=== PATIENT | female | born 1950 | race African-American/Black ===

== ENCOUNTER 2017-12-19 09:58 | Emergency (ER) | payer OTHER ==
[~2017-12-19] VITALS: Ht 167.6 cm; Wt 90.5 kg
[~2017-12-19 09:58] MED LIST: GLUCTAB PO; NAPR500 PO; ORPH100T PO; ST JTAB PO
[2017-12-19 10:00] VITALS: BP 163/74; PULSE 69; RESP 18; TEMP 98.2; O2SAT 94
[2017-12-19] MEDS ORDERED: ASPI-516 CHEW (10:07)
[2017-12-19] MEDS ORDERED: GLUCTAB PO (10:07)
[2017-12-19] MEDS ORDERED: HYDR25TA5 PO (10:11)
--- NOTE | 2017-12-19 10:13 | PD ---
HPI Chief Complaint: Injury Time Seen by Provider: 10:04 Travel History International Travel<30 days: No Contact w/Intl Traveler<30days: No Traveled to known affect area: No History of Present Illness HPI 67-year-old female presents for evaluation of injury/laceration to the left hand. She is right-hand dominant. Prior to arrival she reports that she was manually lowering her garage door when her left second third and fourth fingers became caught between 2 panels. She sustained a laceration to the volar aspect of the distal left third finger. She reports mild pain associated which is throbbing and worse with palpation. Denies any numbness or tingling or range of motion limitation. Her last tetanus vaccination is unknown. No other complaints. PFSH Past Medical History Hx Anticoagulant Therapy: Yes (asa) Cardiovascular Problems: Yes Diabetes: Yes Patient Takes Glucophage: Yes Diminished Hearing: No Hypertension: Yes Tetanus Vaccination: Unknown Menopausal: Yes Past Surgical History Gynecologic Surgery: Yes (TUBAL LIGATION) Other Surgery: Yes (BREAST REDUCTION) Social History Alcohol Use: Yes (OCCASIONALLY) Tobacco Use: No Substance Use: No Allergies-Medications (Allergen,Severity, Reaction): Coded Allergies: amoxicillin (Unverified Allergy, Mild, 12/19/17) clavulanic acid (Unverified Allergy, Mild, 12/19/17) codeine (Unverified Allergy, Mild, 12/19/17) Reported Meds & Prescriptions Reported Meds & Active Scripts Active Reported Hydrochlorothiazide 25 Mg Tab 25 Mg PO DAILY Aspirin 81 Mg Chew 81 Mg CHEW DAILY Glucophage XR (Metformin HCl) 500 Mg Isabella 500 Mg PO DAILY With evening meal Review of Systems Musculoskeletal: Positive: Pain, No: Limited ROM Skin: Positive Other (Positive for laceration, bleeding) Neurologic: No: Paresthesia Physical Exam Narrative GENERAL: Well-developed well-nourished female no acute distress SKIN: Warm and dry. 1 cm laceration along the volar aspect of the left third finger at the level of the DIP joint. Mild bleeding with no pulsating blood. CARDIOVASCULAR: Regular rate and rhythm. No murmur appreciated. RESPIRATORY: No accessory muscle use. Clear to auscultation. Breath sounds equal bilaterally. MUSCULOSKELETAL: No obvious deformities. Skin as noted above. Tender to palpation to the distal left third finger. The nails are intact. Patient maintains full range of motion of left hand and fingers. She has full strength at the MCP, PIP and DIP joint of the left third finger. Distal sensation is preserved on the medial lateral aspect of the finger. Data Data Last Documented VS Vital Signs Date Time Temp Pulse Resp B/P (MAP) Pulse Ox O2 Delivery O2 Flow Rate FiO2 12/19/17 10:00 98.2 69 18 163/74 (103) 94 Orders Orders Hand, Complete ([id number]) (12/19/17 ) Lidocaine Pf 1% Inj (Xylocaine-Mpf 1% In (12/19/17 10:15) Tetanus/Diphtheria Tox Adult (Tetanus/Di (12/19/17 10:15) MDM Medical Decision Making Medical Screen Exam Complete: Yes Emergency Medical Condition: Yes Medical Record Reviewed: Yes Differential Diagnosis Cutaneous laceration, open fracture, flexor tendon laceration Narrative Course Tetanus status updated. X-ray imaging ordered. The laceration will be repaired with sutures, she verbally consents. X-ray imaging is normal. Wound care provided. Patient is stable for discharge. Procedures Procedure Narrative LACERATION LOCATION: Left third finger LENGTH: 1 cm NUMBER OF STITCHES/RONI: 4 REPAIR: The area of the laceration was prepped with Betadine and sterilely draped. The laceration was infiltrated with 1% lidocaine digital block. The wound was copiously irrigated and explored without evidence of foreign body, tendon injury or neurovascular injury. The wound was closed using 5-0 Prolene simple interrupted. This was a single layer repair. A sterile dressing was applied. The patient was advised to keep the dressing clean and dry. Patient tolerated the procedure well. Diagnosis Primary Impression: Finger laceration Additional Instructions: Wash gently with soap and water and apply antibiotic cream twice a day. Return in approximately 14 days for suture removal. Med/Other Pt SpecificInfo: Wound Care Disposition: DISCHARGE HOME Condition: Stable Miles Jane December 19, 2017 10:13
[2017-12-19] MEDS ORDERED: LIDOCAINE HCL 1% PF 30 ML VIAL INFIL ONE (10:15)
[2017-12-19] MEDS ORDERED: TETANUS/DIPHTHERIA TOXOID ADULT 0.5 ML VIAL IM ONE (10:15)
--- NOTE | 2017-12-19 11:09 | RADRPT ---
EXAM DATE/TIME: 12/19/2017 10:33 [facility] COMPARISON: No previous studies available for comparison. INDICATIONS : Pain in left hand, third digit after closing garage door on it. MEDICAL HISTORY : None. SURGICAL HISTORY : None. ENCOUNTER: Initial ACUITY: 1 day PAIN SCORE: 6/10 LOCATION: Left Hand. FINDINGS: 3 views of the left hand demonstrate no fracture or dislocation. Mineralization is normal. There is m ild osteoarthritis at the first carpometacarpal joint. No soft tissue abnormality or radiopaque forei gn body is identified. CONCLUSION: No acute abnormality is identified. Juve Gonzalez MD on December 19, 2017 at 11:06 Board Certified Radiologist. This report was verified electronically.
== END 2017-12-19 11:35 | disposition home or self-care (01) ==
LOC: NEPD 09:58
DX: S61.213A Laceration without foreign body of left middle finger without damage to nail, initial encounter (principal); E11.9 Type 2 diabetes mellitus without complications; I10 Essential (primary) hypertension; W23.0XXA Caught, crushed, jammed, or pinched between moving objects, initial encounter; Y93.89 Activity, other specified; Y92.008 Other place in unspecified non-institutional (private) residence as the place of occurrence of the external cause; Z23 Encounter for immunization; Z79.84 Long term (current) use of oral hypoglycemic drugs
CPT/HCPCS: 12001; 73130; 90471; 90714